=== PATIENT | female | born 2005 | race Asian ===

== ENCOUNTER 2024-07-01 04:21 | Emergency (ER) | payer OTHER, BC ==
[~2024-07-01] VITALS: Ht 162.6 cm; Wt 77.1 kg
[2024-07-01 05:48] VITALS: BP 128/73; TEMP 97.9; O2SAT 99
== END 2024-07-01 05:49 | disposition home or self-care (01) ==
LOC: ER 04:34
DX: S09.90XA Unspecified injury of head, initial encounter (principal); V43.52XA Car driver injured in collision with other type car in traffic accident, initial encounter; Y93.89 Activity, other specified; Y92.488 Other paved roadways as the place of occurrence of the external cause; Y99.8 Other external cause status
CPT/HCPCS: 70450-TC